=== PATIENT | female | born 1950 | race African-American/Black ===

== ENCOUNTER 2018-01-31 06:55 | Day surgery (SDC) | payer MEDICARE, BC ==
[2018-01-31] MEDS ORDERED: DIPHENHYDRAMINE HCL 50 MG/ML VIAL ONE (07:35)
[2018-01-31] MEDS ORDERED: ONDANSETRON HCL INJ/PF 4 MG/2 ML SDV ONE (07:35)
[2018-01-31] MEDS ORDERED: NALOXONE HCL INJ/PF 0.4 MG/1 ML SDV ONE (07:35)
[2018-01-31] MEDS ORDERED: GLUCAGON,HUMAN RECOMB 1 MG INJ ONE (07:36)
[2018-01-31] MEDS ORDERED: EPINEPHRINE INJ 1 MG/10 ML DISP.SYRIN ONE (07:36)
[2018-01-31] MEDS ORDERED: FLUMAZENIL INJ 0.5 MG/5 ML VIAL ONE (07:36)
[2018-01-31] MEDS: MIDAZOLAM 2 MG/2 ML INJ ONE ×3 (08:03→08:11)
[2018-01-31] MEDS: FENTANYL CITRATE INJ/PF 100 MCG/2 ML AMPUL ONE ×4 (08:05→08:15)
--- NOTE | 2018-01-31 08:37 | Operative Report ---
Operative Report DATE OF SURGERY: 01/31/18 PREOPERATIVE DIAGNOSIS: 1. Screen for colon carcinoma. 2. Strong family history of colon cancer POSTOPERATIVE DIAGNOSIS: Same with. 1. Internal hemorrhoids. 2. Sigmoid colon polyp OPERATION: 1. Total colonoscopy to cecum with photodocumentation. 2. Sigmoid colon polypectomy with cold forceps device SURGEON: ESTELLA JIMÉNEZ ANESTHESIA: Moderate Sedation TISSUE REMOVED OR ALTERED: Polyp COMPLICATIONS: None ESTIMATED BLOOD LOSS: None INTRAOPERATIVE FINDINGS: See below PROCEDURE: Obtaining informed consent the patient was taken from the preoperative holding area to the main endoscopy suite where monitoring devices were attached to the patient. Plan and surgical timeout were conducted The patient was placed in the left lateral decubitus position with knees to chest. A perianal examination was performed. There was no visible or palpable anorectal pathology. Sphincter tone was felt to be normal. The flexible adult colonoscope was advanced through the anal rectal canal, all the way to the cecum. Visualization of the cecum was achieved and the ileocecal valve, the appendiceal orifice and transillumination of the anterior abdominal wall. This was an excellent study on the well-prepped bowel. The colonoscope was withdrawn slowly and methodically checked and the mucosa carefully. There was no evidence of tumor, stricture, bleeding; In the sigmoid colon approximately 20 cm from the anal verge was a flat less than 1 cm slightly erythematous well-circumscribed solid polyp, photographed and removed with a single bite of the cold forceps device. Specimen retrieved and labeled as sigmoid colon polyp and sent for pathologic analysis. Bleeding was minimal. There was no evidence of diverticuloses. The scope was slowly withdrawn through the anal rectal canal. Complete visualization of the rectum was achieved with photodocumentation. The scope was withdrawn to the patient's anus. Small internal hemorrhoids were appreciated by retroflexing the scope. The patient tolerated the procedure well and was taken to the recovery area in stable condition. Per surveillance guidelines, patient be appropriate candidate for follow-up colonoscopy in 3 years pending results of final pathology report.
--- NOTE | 2018-01-31 08:38 | Discharge Summary ---
Discharge Summary (SDC) - Discharge Final Diagnosis: Colon polyp status post total colonoscopy to cecum Date of Surgery: 01/31/18 Discharge Date: 01/31/18 Condition: Good Treatment or Instructions: [facility] [address] [address] POST ENDOSCOPY DISCHARGE INSTRUCTIONS 1. Diet: Start clear liquids that a regular diet as tolerated. 2. Resume all preoperative medications. All oral anticoagulants and aspirins can be resumed 24 hours after procedure. 3. If a polypectomy was performed some bleeding per rectum may occur. This should stop within 3 days. If not, please contact the office. 4. If you had a colonoscopy you may experience some bloating and delayed return of normal bowel function for several days, your regular bowel movement pattern should resume within a week. 5. Please contact [facility] at to make an appointment with Dr. Soto for 1 to 3 weeks following procedure. 6. If you have any questions or concerns regarding your care,treatment plan or follow up, please contact our office. 7. Per clinical guidelines we recommend you undergo a repeat colonoscopy in three years. Discharge Diet: As Tolerated Discharge Activity: Activity As Tolerated Home Care Assistance: None Needed Report the Following to Your Physician Immediately: Shortness of Breath, Increase in Pain, Fever over 101 Degrees
[2018-01-31 09:39] VITALS: BP 126/52
== END 2018-01-31 09:40 | disposition home or self-care (01) ==
LOC: END 06:55
PROVIDERS: ATTEND Surgery
PROC: 0DBN8ZX Excision of Sigmoid Colon, Via Natural or Artificial Opening Endoscopic, Diagnostic (ICD-10-PCS; principal; 2018-01-31 07:30)
DX: Z12.11 Encounter for screening for malignant neoplasm of colon (principal); K64.8 Other hemorrhoids; D12.5 Benign neoplasm of sigmoid colon; Z80.0 Family history of malignant neoplasm of digestive organs; I10 Essential (primary) hypertension; I83.90 Asymptomatic varicose veins of unspecified lower extremity; Z79.899 Other long term (current) drug therapy; Z88.0 Allergy status to penicillin; Z88.6 Allergy status to analgesic agent
CPT/HCPCS: 45380; 88305 ×2; J2250; J3010; J0171; J1200; J1610; J2310; J2405; J3490

== ENCOUNTER 2018-05-24 21:09 | Emergency (ER) | payer MEDICARE, BC ==
[2018-05-24] MEDS ORDERED: FUROSEMIDE INJ/PF 40 MG/4 ML SDV ONE (21:16)
[2018-05-24] MEDS ORDERED: PROPOFOL 1,000 MG/100 ML INFUS..BTL IV ONE (21:18)
[2018-05-24] MEDS ORDERED: FUROSEMIDE INJ/PF 20 MG/2 ML SDV IV ONE (21:26)
[2018-05-24] MEDS ORDERED: PROPOFOL 1,000 MG/100 ML INFUS..BTL IV PRN (21:26)
--- NOTE | 2018-05-24 21:27 | ER Document Report ---
ED General - General Stated Complaint: POST ARREST Time Seen by Provider: 05/24/18 21:25 Cannot obtain history due to: Unstable vital signs, Altered mental status Notes: Patient is a 67-year-old female who presents status post cardiac arrest. Apparently was visiting with a family member at [facility], stood up, stated her chest hurt and then dropped to the ground. Patient was noted to be in cardiac arrest, bystander CPR was immediately initiated. Patient apparently had a total of 15-minute code, initial rhythm PEA. Had a period of ventricle tachycardia which was cardioverted with a single shock of 100 J. Patient was intubated in route to the hospital. No further history can be obtained secondary to clinical scenario. TRAVEL OUTSIDE OF THE [place] IN LAST 30 DAYS: No - Related Data Allergies/Adverse Reactions: Penicillins Allergy (Intermediate, Verified 01/31/18 07:19) AMS Past Medical History - General Information source: Emergency Med Personnel Cannot obtain history due to: Unstable vital signs, Altered mental status - Social History Smoking Status: Unknown if Ever Smoked Family History: Reviewed & Not Pertinent - Past Medical History Cardiac Medical History: Reports: Hx Hypertension Denies: Hx Coronary Artery Disease, Hx Heart Attack Pulmonary Medical History: Denies: Hx Asthma, Hx Bronchitis, Hx COPD, Hx Pneumonia Neurological Medical History: Denies: Hx Cerebrovascular Accident, Hx Seizures Musculoskeletal Medical History: Reports Hx Arthritis - physical therapy for R. arm, arthritis Past Surgical History: Reports: Hx Hysterectomy - Immunizations Hx Diphtheria, Pertussis, Tetanus Vaccination: Yes Review of Systems - Review of Systems -: Yes ROS unobtainable due to patient's medical condition Physical Exam - Vital signs Vitals: Pulse Ox 98 05/24/18 21:10 Interpretation: Hypertensive, Tachycardic, Tachypneic Notes: PHYSICAL EXAMINATION: GENERAL: Obtunded, ET tube in place. HEAD: Atraumatic, normocephalic. EYES: Pupils 6 mm bilaterally, sluggishly reactive sclera anicteric, conjunctiva are normal. ENT: nares patent, oropharynx clear without exudates. Moderate dry mucous membranes. NECK: supple without lymphadenopathy LUNGS: Tachypnea, scattered rhonchi in all lung brewer, diffuse B-lines on bedside ultrasound HEART: Regular tachycardia, no pericardial effusion on bedside ultrasound ABDOMEN: Soft, No masses appreciated. EXTREMITIES: 4+ pitting edema in the bilateral lower extremities that is equal and symmetric. No cyanosis. NEUROLOGICAL: No response to noxious stimuli in any extremity. Patient does have cough and gag. Bucking at the tube. PSYCH: Unable to assess SKIN: Warm, Dry, normal turgor, no rashes or lesions noted. Course - Re-evaluation Re-evalutation: 05/24/18 21:27 Documentation is delayed as I been at this patient's bedside continuously since presentation. In summary this patient arrives with a post cardiac arrest, intubated in the field. Initial rhythm PEA, did have a run of ventricular tachycardia, cardioversion applied successfully. Patient arrives hypertensive, tachycardic, bucking at the tube, breathing over the ventilator. She has pulmonary edema pouring out of the ET tube. Apparently the patient claims chest pain shortness of breath and then had a witnessed arrest. Bedside ultrasound shows diffuse B-lines in all lung brewer consistent with pulmonary edema. Bedside echocardiogram without evidence of pericardial effusion or regional wall motion of normality. EKG with aberrant rhythm, sinus tachycardia, no distinct STEMI pattern. Patient was given 40 mill grams of IV furosemide given copious pulmonary edema. Vent settings placed to a PEEP of 15 as patient was quite difficult to provide adequate oxygenation to without such high peeps. Will ob tain labs, chest x-ray, Camargo catheter with temperature probe has been applied. Patient is in critical condition, will be reassessed at regular intervals. 05/24/18 21:42 Chest x-ray shows diffuse pulmonary edema pattern. PEEP at 16, FiO2 weaned to 80% to maintain saturations above 92%. Pressure is holding at 107 on 65 with propofol infusion at 20. Will continue to monitor very closely. 05/24/18 21:58 Blood pressures have down trended, currently 94/72. Propofol backed off to 10. Map is currently 80, monitoring very closely if patient requires vasopressor infusion will start with epinephrine infusion given that this is a post arrest. 05/24/18 22:13 Patient's blood pressures have up trended 119/105. Saturations maintaining at 93% on current vent settings. Labs have been drawn. Awaiting results. 05/24/18 22:27 Patient's blood pressures have remained in a more stable range, 148/94. Awaiting labs. Rectal aspirin will be administered. Will repeat EKG. 05/24/18 22:55 Labs show marketdly leukocytosis likely stress reactant. No infectious etiology suspected at this point. Troponin minimally elevated at 0.086. BNP is not elevated. 05/24/18 23:08 Pressures remain acceptable ranges 142 on 102. Propofol at 20. I have discussed with the family, will transfer to [facility] for availability of cardiac catheterization. At this point I suspect the patient either had an GA or has undiagnosed CHF and had a dysrhythmia. 05/24/18 23:39 I discussed this case with Dr. Ronald Matamoros at [facility]. Patient is pending transfer. 05/25/18 00:35 Helicopters in route for the patient. Patient is from clinically unchanged. Will continue to monitor and reassess at regular intervals. 05/25/18 01:27 Apparently when transport arrived they did administer the patient 125 mg of fentanyl causing a period of hypotension. This was not ordered by me, I did not take any part in this management. The patient became hypotensive at this point as I would anticipate in this context. It is unclear to me why fentanyl was administered as patient was maintaining appropriate sedation on propofol and had reasonable pressures for over 2 hours. The flight crew had assumed complete care of the patient at 0048 changing various points of management that have been keeping the patient stable. - Vital Signs Vital signs: Temp Pulse Resp BP Pulse Ox 99.0 F 29 H 120/80 95 05/25/18 00:51 05/25/18 00:51 05/25/18 00:51 05/25/18 00:51 - Laboratory Result Diagrams: 05/24/18 22:00 05/24/18 22:00 Laboratory results interpreted by me: 05/24/18 05/24/18 22:00 22:00 WBC 35.7 H* RBC 5.45 H Hct 47.6 H MCHC 31.7 L Band Neutrophils % 11 H Metamyelocytes % 3 H Myelocytes % 2 H Abs Neuts (Manual) 25.0 H Abs Lymphs (Manual) 9.3 H Carbon Dioxide 16 L Est GFR (Non-Af Amer) 53 L Glucose 261 H Calcium 8.3 L AST 334 H ALT 307 H Alkaline Phosphatase 205 H Creatine Kinase 283 H Albumin 3.1 L - Diagnostic Test Radiology reviewed: Image reviewed, Reports reviewed Radiology results interpreted by me: 05/24/18 23:39 Chest x-ray: Diffuse pulmonary edema pattern. - EKG Interpretation by Me Additional EKG results interpreted by me: 05/24/18 23:39 EKG 1: Sinus tachycardia, rate 125. Frequent PVCs. Diffuse nonspecific T wave abnormalities. QTC 450. EKG 2: Sinus tachycardia, rate 143. Abnormal T waves in lateral leads. Critical Care Note - Critical Care Note Total time excluding time spent on procedures (mins): 85 Comments: Critical care time spent obtaining history from patient or surrogate, discussions with consultants, development of treatment plan with patient or surrogate, evaluation of patient's response to treatment, examination of patient, ordering and performing treatments and interventions, ordering and review of laboratory studies, re-evaluation of patient's condition, ordering and review of radiographic studies and review of old charts Discharge - Discharge Clinical Impression: Cardiac arrest, Bilateral lower extremity edema, Ventricular tachycardia Pulmonary edema Qualifiers: Chronicity: acute Qualified Code(s): J81.0 - Acute pulmonary edema Condition: Critical Disposition: [facility]
--- NOTE | 2018-05-24 22:15 | RADIOLOGY REPORT (SQ) ---
EXAM DESCRIPTION: XR CHEST 1 VIEW COMPLETED DATE/TME: 05/24/2018 21:25 CLINICAL HISTORY: 67 years, Female, sob, post arrest COMPARISON: None. NUMBER OF VIEWS: 2 TECHNIQUE: AP views of the chest LIMITATIONS: None. FINDINGS: The heart size is normal. Extensive mixed interstitial and airspace opacities bilaterally. Endotracheal tube with the tip approximately 4 cm above the jess. Enteric tube also in place. No pneumothorax. IMPRESSION: Mixed interstitial and airspace opacities. Endotracheal and enteric tubes in place copyright 2010 [employer]- All Rights Reserved
[2018-05-24 22:23] LABS: HEMATOCRIT 47.6 % (36.0-47.0); HEMOGLOBIN 15.1 g/dL (12.0-15.5); MEAN CORPUSCULAR HEMOGLOBIN 27.7 pg (27.0-33.4); MEAN CORPUSCULAR HGB CONC 31.7 g/dL (32.0-36.0); MEAN CORPUSCULAR VOLUME 87 fl (80-97); PLATELET COUNT 370 10^3/uL (150-450); RED BLOOD COUNT 5.45 10^6/uL (3.72-5.28); RED CELL DISTRIBUTION WIDTH 13.5 % (11.5-14.0)
[2018-05-24] MEDS ORDERED: ASPIRIN 300 MG SUPP, RECTAL PR ONE (22:26)
[2018-05-24 22:35] LABS: ALANINE AMINOTRANSFERASE 307 U/L (9-52); ALBUMIN 3.1 g/dL (3.5-5.0); ALKALINE PHOSPHATASE 205 U/L (38-126); ANION GAP 16 (5-19); ASPARTATE AMINO TRANSFERASE 334 U/L (14-36); BILIRUBIN,DIRECT 0.2 mg/dL (0.0-0.4); BILIRUBIN,TOTAL 0.3 mg/dL (0.2-1.3); BLOOD UREA NITROGEN 14 mg/dL (7-20); CALCIUM 8.3 mg/dL (8.4-10.2); CARBON DIOXIDE 16 mmol/L (22-30); CHLORIDE 106 mmol/L (98-107); CREATINE KINASE 283 U/L (30-135); GLUCOSE 261 mg/dL (75-110); POTASSIUM 4.1 mmol/L (3.6-5.0); SODIUM 138.2 mmol/L (137-145); TOTAL PROTEIN 6.8 g/dL (6.3-8.2)
[2018-05-24 22:39] LABS: WHITE BLOOD COUNT 35.7 10^3/uL (4.0-10.5)
[2018-05-24 22:42] LABS: CREATINE KINASE MB 3.24 ng/mL (<4.55)
[2018-05-24 22:48] LABS: TROPONIN I 0.086 ng/mL
[2018-05-24 22:55] LABS: ABSOLUTE LYMPHOCYTES# (MANUAL) 9.3 10^3/uL (0.5-4.7); ABSOLUTE MONOCYTES # (MANUAL) 1.1 10^3/uL (0.1-1.4); BAND NEUTROPHILS % (MANUAL) 11 % (3-5); BASOPHILS % (MANUAL) 0 % (0-2); EOSINOPHILS % (MANUAL) 1 % (0-6); LYMPHOCYTES % (MANUAL) 26 % (13-45); METAMYELOCYTES % (MANUAL) 3 % (0); MONOCYTES % (MANUAL) 3 % (3-13); MYELOCYTES % (MANUAL) 2 % (0); SEGMENTED NEUTROPHILS % (MAN) 54 % (42-78); TOTAL CELLS COUNTED 100
[2018-05-24 22:56] LABS: PLATELET COMMENT ADEQUATE; PLATELET GIANT PRESENT
[2018-05-24 22:58] LABS: BURR CELLS 1+; POIKILOCYTOSIS SLIGHT
[2018-05-25 01:05] VITALS: BP 120/80
--- NOTE | 2018-05-25 12:32 | EKG REPORT ---
SEVERITY:- ABNORMAL ECG - SINUS TACHYCARDIA MULTIPLE VENTRICULAR PREMATURE COMPLEXES ABNRM R PROG, CONSIDER ASMI OR LEAD PLACEMENT NONSPECIFIC T ABNORMALITIES, LATERAL LEADS : Confirmed by: Kuldeep Oneil 25-May-2018 12:31:53
--- NOTE | 2018-05-25 12:33 | EKG REPORT ---
SEVERITY:- ABNORMAL ECG - SINUS TACHYCARDIA ABERRANT COMPLEX PROBABLE LEFT ATRIAL ABNORMALITY BORDERLINE R WAVE PROGRESSION, ANTERIOR LEADS ABNORMAL T, CONSIDER ISCHEMIA, LATERAL LEADS BORDERLINE ST ELEVATION, ANTERIOR LEADS BORDERLINE PROLONGED QT INTERVAL : Confirmed by: Kuldeep Oneil 25-May-2018 12:32:27
[2018-05-27 11:49] LABS: PATH REVIEW PATHOLOGIST REVIEWED
== END 2018-05-25 01:45 | disposition short-term general hospital (02) ==
LOC: ER 21:09
DX: I46.9 Cardiac arrest, cause unspecified (principal); I10 Essential (primary) hypertension; I47.2 Ventricular tachycardia; J81.1 Chronic pulmonary edema; R06.82 Tachypnea, not elsewhere classified; I95.2 Hypotension due to drugs; T40.4X5A Adverse effect of other synthetic narcotics, initial encounter; D72.829 Elevated white blood cell count, unspecified; Z88.0 Allergy status to penicillin
CPT/HCPCS: 93005; 99291; 99292; 51702; 96374; 36415; 82553; 82550; 85025; 80053; 84484; 83880; 71045; 94660; 93010; A9270; J1940; 94002; C1751; J3490